=== PATIENT | male | born 1975 | race Two or more races ===

== ENCOUNTER 2018-02-26 17:50 | Emergency (ER) | payer OTHER ==
[~2018-02-26] VITALS: Ht 167.6 cm; Wt 66.2 kg
[2018-02-26 19:07] LABS: BASOPHILS # (AUTO) 0.1 K/uL (0.0-8.0); BASOPHILS % (AUTO) 2.9 % (0.0-2.0); EOSINOPHILS # (AUTO) 0.1 K/uL (0.0-0.7); EOSINOPHILS % (AUTO) 3.4 % (0.0-7.0); HEMATOCRIT 39.4 % (36.7-47.1); HEMOGLOBIN 13.4 g/dL (12.5-16.3); LYMPHOCYTES # (AUTO) 1.1 K/uL (20.0-40.0); LYMPHOCYTES % (AUTO) 41.1 % (20.5-51.5); MEAN CORPUSCULAR HEMOGLOBIN 34.9 uug (23.8-33.4); MEAN CORPUSCULAR HGB CONC 34 g/dL (32.5-36.3); MEAN CORPUSCULAR VOLUME 102.9 fL (73.0-96.2); MONOCYTES # (AUTO) 0.4 K/uL (2.0-10.0); MONOCYTES % (AUTO) 15.4 % (0.0-11.0); NEUTROPHILS % (AUTO) 37.2 % (38.5-71.5); PLATELET COUNT (AUTO) 201 K/uL (152-348); RED BLOOD CELL COUNT(AUTO) 3.83 MIL/uL (4.06-5.63); WHITE BLOOD COUNT (AUTO) 2.6 K/uL (3.6-10.2)
[2018-02-26 19:11] LABS: CREATININE 0.7 mg/dL (0.6-1.3); POTASSIUM 3.5 mmol/L (3.5-5.1)
[2018-02-26 19:17] LABS: BILIRUBIN,DIRECT 0.1 mg/dL (0.0-0.2); BILIRUBIN,TOTAL 0.3 mg/dL (0.2-1.0); TOTAL PROTEIN, SERUM 8.7 g/dL (6.4-8.2)
--- NOTE | 2018-02-26 19:17 | NUR ---
REPORT TAKEN FROM SHAE VAZQUEZ. ASSUMING PT CARE AT THIS TIME.
--- NOTE | 2018-02-26 19:34 | NUR ---
PT PLACED ON 2L O2 VIA NASAL CANNULA.
[2018-02-26 19:49] LABS: BAND % (MANUAL) 5 % (0-10); EOSINOPHILS % (MANUAL) 5 % (0-8); LYMPHOCYTES % (MANUAL) 42 % (20-40); MONOCYTES % (MANUAL) 15 % (2-10); NEUTROPHILS % (MANUAL) 33 % (42-75)
--- NOTE | 2018-02-26 20:31 | NUR ---
PT STILL SLEEPING IN BED, NO DISRESS NOTED. NO ACUTE EVENTS.
[2018-02-26] MEDS ORDERED: AZITHROMYCIN 500 MG VIAL IV ONE (21:56)
[2018-02-26] MEDS ORDERED: CEFTRIAXONE 500 MG VIAL ONE (21:57)
[2018-02-26] MEDS ORDERED: AZITHROMYCIN 250 MG TABLET ONE (21:58)
[2018-02-26] MEDS ORDERED: AZITHROMYCIN 250 MG TABLET PO ONE (22:00)
[2018-02-26] MEDS ORDERED: CEFTRIAXONE 500 MG VIAL IM ONE (22:00)
--- NOTE | 2018-02-26 22:20 | NUR ---
Patient discharged to home in stable conditon. Written and verbal after care instructions given. Patient verbalizes understanding of instructions. PT escorted out by security, and provided sandwich.
[2018-02-26 22:22] VITALS: BP 132/86
[2018-03-01 13:06] LABS: *GC NAA Negative (Negative); *TRIC.VAG. NAA Positive (Negative)
== END 2018-02-26 22:23 | disposition home or self-care (01) ==
LOC: ER 17:51
DX: F10.129 Alcohol abuse with intoxication, unspecified (principal); I10 Essential (primary) hypertension
CPT/HCPCS: 36415; 85025; 87491; A4663; G0480; J0456; J0696; J3490; Q0144